=== PATIENT | male | born 1960 | race African-American/Black ===

== ENCOUNTER 2017-01-12 06:28 | Emergency (ER) | payer MEDICAID ==
[~2017-01-12] VITALS: Ht 177.8 cm; Wt 81.6 kg
[~2017-01-12 06:28] MED LIST: HYDR-548 PO
[2017-01-12] MEDS ORDERED: KETOROLAC TROMETHAMINE 30 MG INJ IM ONE (07:00)
[2017-01-12] MEDS ORDERED: KETOROLAC TROMETHAMINE 30 MG INJ ONE (07:03)
--- NOTE | 2017-01-12 07:18 | NUR ---
Patient discharged to home in stable conditon. Written and verbal after care instructions given. Patient verbalizes understanding of instructions. Ambulated from ED with stable gait. No adverse reaction to Toradol IM noted. No allergic reaction noted, per patient statement no itching, difficulty breathing or distress noted. All belongings taken with patient.
[2017-01-12 07:21] VITALS: BP 120/78
== END 2017-01-12 07:22 | disposition home or self-care (01) ==
LOC: ER 06:33
DX: M54.5 Low back pain (principal); I10 Essential (primary) hypertension; F17.200 Nicotine dependence, unspecified, uncomplicated; Z88.6 Allergy status to analgesic agent
CPT/HCPCS: 96372; 99283; A4663; J1885

== ENCOUNTER 2021-02-01 23:50 | Emergency (ER) | payer MEDICAID, OTHER ==
[~2021-02-01 23:50] MED LIST changes: +HYDR-4354 PO; -HYDR-548 PO
--- NOTE | 2021-02-02 00:50 | NUR ---
Patient was in the traiged area and stated "I don't want to be seen anymore." Patient was not traiged or seren by ERMD
== END 2021-02-02 01:11 | disposition left against medical advice (07) ==
LOC: ER 23:51
DX: Z53.21 Procedure and treatment not carried out due to patient leaving prior to being seen by health care provider (principal)